=== PATIENT | male | born 1990 | race Caucasian/White ===

== ENCOUNTER 2017-11-14 16:15 | Emergency (ER) | payer BC, OTHER ==
--- NOTE | 2017-11-14 17:16 | EDM.PDOC ---
ED HPI GENERAL MEDICAL PROBLEM - General Chief Complaint: Trauma Stated Complaint: TIRE FELL ON HIM Time Seen by Provider: 11/14/17 16:20 Source of Information: Reports: Patient History Limitations: Reports: No Limitations - History of Present Illness INITIAL COMMENTS - FREE TEXT/NARRATIVE: Was changing a tire and it fell on top of him. He states that it weighs about 1500#. He was able to get out from under it with much difficulty. He denied any injury to head or LOC. He does complain that his left side of chest hurts with some multiple abrasions to the left chest, and back and upper left shoulder. He denies any difficulty breathing. Has some abrasions to the left leg. He was able to walk after getting out from under the tire and drive himself to the ER. Onset: Today Location: Reports: Chest, Back, Upper Extremity, Left, Lower Extremity, Left Quality: Reports: Throbbing Worsens with: Reports: Movement Associated Symptoms: Denies: Shortness of Breath Left Shoulder Pain Score (Numeric/FACES): 5 - Related Data Allergies Allergy/AdvReac Type Severity Reaction Status Date / Time No Known Allergies Allergy Verified 11/14/17 16:36 Home Meds: Home Meds . [No Known Home Meds] 11/14/17 [History] Past Medical History - Past Health History Medical/Surgical History: Denies Medical/Surgical History Review of Systems - Review of Systems Review Of Systems: See Below Constitutional: Reports: No Symptoms Eyes: Reports: No Symptoms Ears: Reports: No Symptoms Nose: Reports: No Symptoms Mouth/Throat: Reports: No Symptoms Respiratory: Reports: Other ("Hurts to take a deep breathe"). Denies: Shortness of Breath Cardiovascular: Reports: No Symptoms GI/Abdominal: Reports: No Symptoms Musculoskeletal: Reports: Back Pain, Leg Pain (left), Other (chest wall pain) Skin: Reports: Wound (left chest wall, back, left leg, left shoulder.) Neurological: Reports: No Symptoms ED EXAM, GENERAL - Physical Exam Exam: See Below Exam Limited By: No Limitations General Appearance: Alert, WD/WN, Moderate Distress Ears: Normal Canal, Normal TMs Nose: Normal Inspection Throat/Mouth: Normal Inspection, Normal Oropharynx, No Airway Compromise Head: Atraumatic, Normocephalic Neck: Normal Inspection, Supple, Non-Tender Respiratory/Chest: No Respiratory Distress, Lungs Clear, Normal Breath Sounds, Other (No increase in tenderness with compression of the chest wall.) Cardiovascular: Regular Rate, Rhythm, No Murmur GI/Abdominal: Normal Bowel Sounds, Soft, Non-Tender Back Exam: Normal Inspection, Full Range of Motion Extremities: Normal Inspection, Normal Range of Motion, Normal Capillary Refill Neurological: Alert, Oriented Psychiatric: Normal Affect Skin Exam: Warm, Dry, Other (abrasions to the left leg, anterior and posterior chest wall on the left. No bleeding noted from these.) Course - Vital Signs Last Recorded V/S: Last Vital Signs Temp 98.7 F 11/14/17 16:15 Pulse 107 H 11/14/17 16:15 Resp 20 11/14/17 16:15 BP 147/78 H 11/14/17 16:15 Pulse Ox 95 11/14/17 16:15 Departure - Departure Time of Disposition: 17:14 Disposition: Home, Self-Care 01 Condition: Good Clinical Impression: Multiple abrasions Left knee injury Qualifiers: Encounter type: initial encounter Qualified Code(s): S89.92XA - Unspecified injury of left lower leg, initial encounter Accidentally struck by falling object Qualifiers: Encounter type: initial encounter Qualified Code(s): W20.8XXA - Other cause of strike by thrown, projected or falling object, initial encounter - Discharge Information *PRESCRIPTION DRUG MONITORING PROGRAM REVIEWED*: Not Applicable *COPY OF PRESCRIPTION DRUG MONITORING REPORT IN PATIENT MILLA: Not Applicable Referrals: PCP,None [Primary Care Provider] - Forms: ED Department Discharge Additional Instructions: Tylenol or advil as needed for discomfort ice to the left knee for swelling watch for any signs of infection recheck if any new concerns - Problem List & Annotations (1) Accidentally struck by falling object SNOMED Code(s): 828027691 Code(s): W20.8XXA - OTH CAUSE OF STRIKE BY THROWN, PROJECTED OR FALL OBJ, INIT Status: Acute Priority: High Qualifiers: Encounter type: initial encounter Qualified Code(s): W20.8XXA - Other cause of strike by thrown, projected or falling object, initial encounter (2) Left knee injury SNOMED Code(s): 724922717 Code(s): S89.92XA - UNSPECIFIED INJURY OF LEFT LOWER LEG, INITIAL ENCOUNTER Status: Acute Priority: High Qualifiers: Encounter type: initial encounter Qualified Code(s): S89.92XA - Unspecified injury of left lower leg, initial encounter (3) Multiple abrasions SNOMED Code(s): 135057481, 344355923 Code(s): T07.XXXA - UNSPECIFIED MULTIPLE INJURIES, INITIAL ENCOUNTER Status : Acute Priority: High - Problem List Review Problem List Initiated/Reviewed/Updated: Yes
== END 2017-11-14 17:20 | disposition home or self-care (01) ==
LOC: CC.ED 16:15
DX: S80.812A Abrasion, left lower leg, initial encounter (principal); S20.312A Abrasion of left front wall of thorax, initial encounter; W20.8XXA Other cause of strike by thrown, projected or falling object, initial encounter
CPT/HCPCS: 71046; 99284

== ENCOUNTER 2020-12-28 02:54 | Emergency (ER) | payer BC ==
[2020-12-28 03:19] LABS: AMPHETAMINES,URINE NEGATIVE (NEGATIVE); BARBITURATES,URINE NEGATIVE (NEGATIVE); BENZODIAZEPINE,URINE NEGATIVE (NEGATIVE); MDMA (ECSTASY), URINE NEGATIVE (NEGATIVE); METHADONE,URINE NEGATIVE (NEGATIVE); METHAMPHETAMINES,URINE NEGATIVE (NEGATIVE); OPIATES,URINE NEGATIVE (NEGATIVE); OXYCODONE,URINE NEGATIVE (NEGATIVE); PHENCYCLIDINE,URINE NEGATIVE (NEGATIVE); TCA,URINE NEGATIVE (NEGATIVE)
[2020-12-28 03:27] LABS: CHLORIDE,CL 109 mEq/L (98-106); SODIUM,NA 146 mEq/L (136-145)
--- NOTE | 2020-12-28 04:09 | EDM.PDOC ---
ED HPI GENERAL MEDICAL PROBLEM - General Chief Complaint: General Stated Complaint: found unresponsive in vehicle Time Seen by Provider: 12/28/20 03:00 Source of Information: Reports: EMS, Police History Limitations: Reports: Other (unresponsive) - History of Present Illness INITIAL COMMENTS - FREE TEXT/NARRATIVE: David is a 30 year old who presents per EMS due to unresponsiveness. Was found slumped over in his SUV outside [place]. Did not respond to office on scene so 911 was called. EMS reports did tense his arms when loaded on to cot and with sternal rub but no other response from patient. ETOH odor noted. Incontinent of urine. No vomiting. No evidence of trauma, bruising, abrasions. No witnesses at scene. EMS noted normal vital signs, sats 98%. Pupils constricted but responsive. Did note right eye deviation but reported to be chronic for him by police. Onset: Today, Unknown/Unsure Duration: Constant Location: Reports: Generalized - Related Data Allergies Allergy/AdvReac Type Severity Reaction Status Date / Time No Known Allergies Allergy Verified 12/28/20 03:51 Home Meds: Home Meds . [No Known Home Meds] 11/14/17 [History] Past Medical History - Past Health History Medical/Surgical History: Denies Medical/Surgical History Social & Family History - Tobacco Use Tobacco Use Status *Q: Current Every Day Tobacco User Years of Tobacco use: 8 Packs/Tins Daily: 1 ED ROS GENERAL - Review of Systems Review Of Systems: Unable To Obtain Reason Not Obtained: patient unresponsive, sonorous respirations. Sats 99% ED EXAM, GENERAL - Physical Exam Exam: See Below Exam Limited By: Altered Mental Status General Appearance: Obtunded Eye Exam: Bilateral Eye: Other (pupils pinpoint, sluggish on arrival) Ears: Normal External Exam, Normal TMs Nose: Normal Inspection, Normal Mucosa, No Blood Throat/Mouth: Normal Inspection, Normal Oropharynx Head: Normocephalic Neck: Normal Inspection, Supple Respiratory/Chest: No Respiratory Distress, Lungs Clear, Normal Breath Sounds Cardiovascular: Regular Rate, Rhythm GI/Abdominal: Normal Bowel Sounds, Soft Back Exam: Normal Inspection, Full Range of Motion Extremities: Normal Inspection, No Pedal Edema Neurological: Unresponsive Skin Exam: Warm, Dry Course - Vital Signs Last Recorded V/S: Last Vital Signs Temp 95.8 F L 12/28/20 03:20 Pulse 99 12/28/20 03:54 Resp 18 12/28/20 03:54 BP 137/88 12/28/20 03:20 Pulse Ox 100 12/28/20 03:30 - Orders/Labs/Meds Orders: Active Orders 24 hr Category Date Time Status Head wo Cont [CT] Stat Exams 12/28/20 03:06 Ordered Labs: Laboratory Tests 12/28/20 12/28/20 12/28/20 Range/Units 02:58 03:10 03:11 WBC 6.3 (4.0-11.0) 10^3/uL RBC 4.36 L (4.50-6.00) x10^6/uL Hgb 13.9 L (14.0-18.0) g/dL Hct 40.9 L (42.0-52.0) % MCV 93.8 (83.0-97.0) fL MCH 31.9 (27.0-32.0) pg MCHC 34.0 (32.0-36.0) g/dL RDW Coeff of Luis Miguel 12.0 (11.0-15.0) % Plt Count 186 (150-400) 10^3/uL Immature Gran % (Auto) 0.2 (0.0-4.9) % Neut % (Auto) 54.6 (41-71) % Lymph % (Auto) 32.9 (24-44) % [place] % (Auto) 9.5 (0-10) % Eos % (Auto) 2.5 (0-6) % Baso % (Auto) 0.3 (0-1) % Neut # (Auto) 3.44 (1.80-8.00) x10^3/uL Lymph # (Auto) 2.07 (0.60-5.00) 10^3/uL [place] # (Auto) 0.60 (0.00-1.50) 10^3/uL Eos # (Auto) 0.16 (0.00-1.50) 10^3/uL Baso # (Auto) 0.02 (0.00-0.50) 10^3/uL Immature Gran # (Auto) 0.01 (0.00-0.49) 10^3/uL Sodium 146 H (136-145) mEq/L Potassium 3.7 (3.5-5.0) mEq/L Chloride 109 H (98-106) mEq/L Carbon Dioxide 24 (21-32) mmol/L BUN 9 (7-18) mg/dL Creatinine 0.7 (0.7-1.3) mg/dL Est Cr Clr Drug Dosing TNP Estimated GFR (MDRD) > 60 (>=60) mL/min Glucose 89 (75-99) mg/dL Calcium 7.7 L (8.4-10.1) mg/dL Total Bilirubin 0.1 (0.0-1.0) mg/dL AST 24 (15-37) U/L ALT 30 (12-78) U/L Alkaline Phosphatase 87 (46-116) U/L C-Reactive Protein < 0.2 L (0.2-0.8) mg/dL Total Protein 7.2 (6.4-8.2) g/dL Albumin 3.9 (3.4-5.0) g/dL Urine Opiates Screen Negative (NEGATIVE) Ur Oxycodone Screen Negative (NEGATIVE) Urine Methadone Screen Negative (NEGATIVE) Ur Barbiturates Screen Negative (NEGATIVE) U Tricyclic Antidepress Negative (NEGATIVE) Ur Phencyclidine Scrn Negative (NEGATIVE) Ur Amphetamine Screen Negative (NEGATIVE) U Methamphetamines Scrn Negative (NEGATIVE) Urine MDMA Screen Negative (NEGATIVE) U Benzodiazepines Scrn Negative (NEGATIVE) Urine Cocaine Screen Negative (NEGATIVE) U Marijuana (THC) Screen Negative (NEGATIVE) Ethyl Alcohol 347 H* (0-3) mg/dL - Re-Assessments/Exams Free Text/Narrative Re-Assessment/Exam: 12/28/20 Patient unresponsive on arrival, sonorous respirations. No response with sternal rub. Oxygen sats are high 90s. Vital signs are stable. See nurses notes. Did not respond with blood draw but did awaken with catheter placement. Labs are unremarkable. Were going to do CT of head and as tech h ere, patient now awake and refuses. States he is "Fine". Is quite angry now that he is in the ER. Does not recall any of the initial events of the evening with police finding him, EMS assessing and loading him or initially being here. Becomes uncooperative with the nurse and any care we provide, refuses. Would not let us attempt even a blood pressure or check a temperature. Has no seizure activity Labs unremarkable except alcohol level is 347. Argumentative with staff. fisheries technical officer present, did cooperate with blood draw for arresting office. IV fluids infused, patient conversing easily with girlfriend, remains angry with us staff members. Discharge instructions given. Departure - Departure Time of Disposition: 04:09 Disposition: Home, Self-Care 01 Condition: Good Clinical Impression: Alcohol intoxication, Unresponsive episode - Discharge Information *PRESCRIPTION DRUG MONITORING PROGRAM REVIEWED*: No *COPY OF PRESCRIPTION DRUG MONITORING REPORT IN PATIENT MILLA: No Instructions: Alcohol Intoxication, [id number] Referrals: PCP,None [Primary Care Provider] - Forms: ED Department Discharge Additional Instructions: 1. Push fluids 2. Rest 3. Return to ER if concerns Sepsis Event Note (ED) - Evaluation Sepsis Screening Result: No Definite Risk - Focused Exam Vital Signs: Vital Signs Temp Pulse Resp BP Pulse Ox 12/28/20 03:54 99 18 12/28/20 03:30 98 16 100 12/28/20 03:20 95.8 F L 99 15 137/88 99 12/28/20 03:05 96.8 F L 71 18 96/60 95 - My Orders Last 24 Hours: My Active Orders 12/28/20 03:06 Head wo Cont [CT] Stat - Assessment/Plan Last 24 Hours: My Active Orders 12/28/20 03:06 Head wo Cont [CT] Stat
== END 2020-12-28 04:15 | disposition home or self-care (01) ==
LOC: CC.ED 02:54
DX: R40.4 Transient alteration of awareness (principal); F10.129 Alcohol abuse with intoxication, unspecified; Z72.0 Tobacco use; Y90.8 Blood alcohol level of 240 mg/100 ml or more
CPT/HCPCS: 36415; 80053; 80305-QW; 80307; 85025; 86140; 99285